=== PATIENT | male | born 2000 | race Caucasian/White ===

== ENCOUNTER 2020-06-03 08:45 | Emergency (ER) | payer OTHER, SELFPAY ==
--- NOTE | ~2020-06-03 | XR_ITS ---
EXAMINATION: XR chest 2V DATE: 06/03/2020 09:35 INDICATION: Chest pain and shortness of breath TECHNIQUE: PA and lateral views of the chest were obtained. COMPARISON: None FINDINGS: The lungs are clear with no focal airspace opacities, pulmonary edema, pleural effusion or pneumothor ax. The cardiomediastinal silhouette is normal. Visualized bones and soft tissues are unremarkable. IMPRESSION: 1. No acute cardiopulmonary disease. Reviewed, dictated and finalized at location A.
[2020-06-03 09:00] VITALS: BP 155/96; PULSE 98; RESP 20; TEMP 37.1; O2SAT 100
--- NOTE | 2020-06-03 09:00 | ECG_ITS ---
Measurements Intervals [place] Rate: 84 P: 14 TX: 142 QRS: -27 QRSD: 100 T: 30 QT: 376 QTc: 444 Interpretive Statements SINUS RHYTHM VOLTAGE CRITERIA FOR LVH DELAYED PRECORDIAL R/S TRANSITION BORDERLINE ECG Electronically Signed On 06-03-2020 9:54:38 CDT by Daryl Monroy D.O.
[2020-06-03 09:17] LABS: Basophils Percent Auto 0.5 % (0.2-1.2); Eosinophils Absolute Auto 0.2 K/mm3 (0-0.3); Eosinophils Percent Auto 1.7 % (0-4.4); Hematocrit 47.4 % (42.0-52.0); Hemoglobin 15.7 g/dL (14.0-18.0); Immature Granulocyte Absolute 0.02 K/mm3 (0.00-0.031); Immature Granulocyte Percent A 0.2 % (0-0.5); Lymphocytes Absolute Auto 3.19 K/mm3 (0.9-3.2); Lymphocytes Percent Auto 36.2 % (18.3-44.2); Mean Corpuscular HGB Conc 33.1 g/dl (32-36); Mean Corpuscular Hemoglobin 27.2 pg (26-34); Mean Corpuscular Volume 82.1 fl (80-100); Mean Platelet Volume 10.4 fl (7.4-10.4); Monocytes Absolute Auto 0.5 K/mm3 (0.1-0.6); Monocytes Percent Auto 6.1 % (2.6-8.5); Neutrophils Absolute Auto 4.9 K/mm3 (1.3-6.7); Neutrophils Percent Auto 55.3 % (45.5-73.1); Platelet Count Result 349 k/mm3 (150-375); Red Blood Count 5.77 M/mm3 (4.6-6.20); Red Cell Distribution Width 12.7 % (11.5-14.5); White Blood Count 8.8 K/mm3 (4.5-10.0)
[2020-06-03 09:29] LABS: Blood Urea Nitrogen 14 mg/dL (9-20); Calcium 9.8 mg/dL (8.4-10.2); Carbon Dioxide 30 mmol/L (22-30); Chloride 98 mmol/L (98-107); Estimated CRCL calculation 157 ml/min; Estimated Glomerular Filt Rate > 60; Glucose 89 mg/dL (75-110); Potassium 3.6 mmol/L (3.4-5.0); Sodium 136 mmol/L (137-145)
[2020-06-03] MEDS: ASPIRIN 81 MG CHEWABLE TABLET 324 MG PO (09:30)
[2020-06-03 09:31] LABS: Prothrombin Time 12.5 Seconds (11.1-14.7)
[2020-06-03 09:33] LABS: Partial Thromboplastin Time 31.4 SECONDS (22.3-36.8)
[2020-06-03 09:41] LABS: Troponin I < 0.012 ng/mL (0.000-0.034)
[2020-06-03] MEDS: KETOROLAC 30 MG/ML VIAL (*BKC) IV PUSH (09:50)
[2020-06-03 10:00] VITALS: BP 122/75; PULSE 82; RESP 16; O2SAT 98
--- NOTE | 2020-06-03 10:45 | ED.GENADULT ---
HPI - General Adult General Chief complaint: Chest Pain Stated complaint: short of breath, chest pain Time Seen by Provider: 06/03/20 09:01 History of Present Illness HPI narrative: Patient is a 19-year-old male who presents ER with chest pain and shoulder pain. Been ongoing for 3 days when he lays down to go to bed. Better when he is up moving around. No fever/chills/sweats/nausea/vomiting. Has not taken any pain medication for this. 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 Related Data Home Medications Medication Instructions Recorded Confirmed atorvastatin 06/03/20 levothyroxine 06/03/20 Allergies Allergy/AdvReac Type Severity Reaction Status Date / Time No Known Allergies Allergy Verified 06/03/20 09:12 Review of Systems Review of Systems: All systems reviewed & are unremarkable except as noted in HPI and below Constitutional: Constitutional: Denies chills, Denies fever(s) and Denies weakness ENT: Denies nasal congestion and Denies sore throat Cardiovascular: Cardiovascular: Reports chest pain, Denies rapid heart rate and Reports radiating jaw, neck or arm pain Respiratory: Respiratory: Denies cough, Denies dyspnea and Denies wheezing Gastrointestinal: Gastrointestinal: Denies abdominal pain, Denies diarrhea, Denies nausea and Denies vomiting PMFSH Past Medical History Medical History (Updated 06/03/20 @ 11:02 by Calin Pollard MD) Hyperlipidemia Hypothyroidism Surgical History Surgical History (Updated 06/03/20 @ 10:47 by Calin Pollard MD) No pertinent past surgical history Family History Family History (Updated 06/03/20 @ 10:47 by Calin Pollard MD) Mother Heart disease Social History Social History (Updated 06/03/20 @ 10:47 by Calin Pollard MD) Smoking status: Never smoker Exam Narrative: Exam Narrative: GENERAL: Well-appearing, morbidly obese, and in no acute distress. HEAD: Normocephalic, atraumatic. ENT: Mucous membranes moist. CHEST: Clear to auscultation. No respiratory distress. HEART: Regular rate and rhythm. Normal peripheral pulses. ABDOMEN: Soft, nontender, nondistended. EXTREMITIES: Normal range of motion. No edema. SKIN: Warm, dry, no rash. NEURO: Alert and oriented x3. PSYCH: Normal mood and affect. Course Course Emergency Course: Patient informed of results. Pain improved with Toradol. Discharge home. Vital Signs Vital signs: Vital Signs Temperature 98.7 F 06/03/20 09:00 Pulse Rate 98 06/03/20 09:00 Respiratory Rate 06/03/20 09:00 Blood Pressure 155/96 H 06/03/20 09:00 Pulse Oximetry 100 06/03/20 09:00 Temperature 98.7 F 06/03/20 09:00 Pulse Rate 98 06/03/20 09:00 Respiratory Rate 06/03/20 09:00 Blood Pressure 155/96 H 06/03/20 09:00 Pulse Oximetry 100 06/03/20 09:00 Medical Decision Making Vital Signs Vital Signs: Vital Signs Temperature 98.7 F 06/03/20 09:00 Pulse Rate 98 06/03/20 09:00 Respiratory Rate 06/03/20 09:00 Blood Pressure 155/96 H 06/03/20 09:00 Pulse Oximetry 100 06/03/20 09:00 Temperature 98.7 F 06/03/20 09:00 Pulse Rate 98 06/03/20 09:00 Respiratory Rate 06/03/20 09:00 Blood Pressure 155/96 H 06/03/20 09:00 Pulse Oximetry 100 06/03/20 09:00 Lab Data Result diagrams: 06/03/20 09:10 06/03/20 09:10 Labs: Lab Results 06/03/20 06/03/20 06/03/20 Range/Units 09:10 09:10 09:10 WBC 8.8 (4.5-10.0) K/mm3 RBC 5.77 (4.6-6.20) M/mm3 Hgb 15.7 (14.0-18.0) g/dL Hct 47.4 (42.0-52.0) % MCV 82.1 (80-100) fl MCH 27.2 (26-34) pg MCHC 33.1 (32-36) g/dl RDW 12.7 (11.5-14.5) % Plt Count 349 (150-375) k/mm3 MPV 10.4 (7.4-10.4) fl Immature Gran % (Auto) 0.2 (0-0.5) % Neut % (Auto) 55.3 (45.5-73.1) % Lymph % (Auto) 36.2 (18.3-44.2) % [place] % (Auto) 6.1 (2.6-8.5) % Eos % (Auto) 1.7 (0
[2020-06-03 11:10] VITALS: BP 134/77; PULSE 88; RESP 16; O2SAT 98
== END 2020-06-03 11:10 | disposition home or self-care (01) ==
PROVIDERS: Emergency Provider Emergency Medicine; PCP Family Medicine
DX: R07.9 Chest pain, unspecified (principal); E78.5 Hyperlipidemia, unspecified; E03.9 Hypothyroidism, unspecified
CPT/HCPCS: 36415; 71046; 80048; 84484; 85025; 85610; 85730; 93005; 96374; 99284; A9270; J1885

== ENCOUNTER 2021-04-25 07:48 | Outpatient (CLI) | payer OTHER, SELFPAY ==
--- NOTE | ~2021-04-25 | US_ITS ---
EXAMINATION: US abdomen limited DATE: 04/25/2021 08:24 INDICATION: Epigastric abdominal pain. TECHNIQUE: Multiple grayscale and Doppler ultrasound images of the abdomen were obtained. COMPARISON: None FINDINGS: The visualized portions of the head of the pancreas are normal. There is diffuse hepatic st eatosis. No liver surface nodularity. There is normal flow in main portal vein. The gallbladder is no rmal in size. No gallstones or gallbladder wall thickening. There was no sonographic Bland sign. The common duct is normal and measures 3 mm. IMPRESSION: 1. Diffuse hepatic steatosis. Reviewed, dictated and finalized at location A.
== END 2021-04-25 07:49 | disposition home or self-care (01) ==
PROVIDERS: PCP Physician Assistant; Visit Provider Physician Assistant
DX: R10.13 Epigastric pain (principal); R11.2 Nausea with vomiting, unspecified; K76.0 Fatty (change of) liver, not elsewhere classified
CPT/HCPCS: 76705

== ENCOUNTER 2022-06-23 00:10 | Day surgery (SDC) | payer OTHER, SELFPAY ==
[2022-06-05 15:18] VITALS: BMI 44.4
[2022-06-23 11:55] VITALS: BP 141/92; PULSE 88; RESP 20; TEMP 36.2; O2SAT 98; BMI 44.7
[2022-06-23] MEDS: LACTATED RINGERS 1,000 ML 150 ML IV CONT (12:20)
--- NOTE | 2022-06-23 12:50 | P.PNAN_ITS ---
Anes - Initial Pre Proc Eval Procedure: Operation Date: 06/23/22 14:00 Proposed Procedures p Esophagogastroduodenoscopy - Sukhjinder Tenorio MD Date/Time: 06/23/22 12:50 Surgeon: Sukhjinder Tenorio MD Pre Op Diagnosis: nausea, vomiting Patient Data Age: 21 Gender: M Height: 1.75 m Weight: 137.4 kg Last Vital Signs Temp 97.1 F L 06/23/22 11:55 Pulse 88 06/23/22 11:55 Resp 20 06/23/22 11:55 BP 141/92 H 06/23/22 11:55 Pulse Ox 98 06/23/22 11:55 O2 Del Method Room Air 06/23/22 11:55 Allergies Allergy/AdvReac Type Severity Reaction Status Date / Time No Known Allergies Allergy Verified 06/23/22 11:59 Home Medications Medication Instructions Recorded Confirmed Type fluoxetine 10 mg tablet 10 mg PO DAILY #90 tabs 07/29/21 06/23/22 Rx alprazolam 0.25 mg tablet 0.25 mg PO BID PRN anxiety or 11/04/21 06/23/22 Rx chest pain #40 tabs metoprolol tartrate 25 mg tablet 12.5 mg PO .HS #30 tabs 11/04/21 06/23/22 Rx pantoprazole 40 mg tablet,delayed 40 mg PO QHS #30 tabs 03/10/22 06/23/22 Rx release levothyroxine 100 mcg capsule 100 mcg PO DAILY #30 caps 05/27/22 06/23/22 Rx atorvastatin 20 mg tablet 20 mg PO DAILY #30 tabs 05/31/22 06/23/22 Rx Patient hx anesthesia problems: none Family hx anesthesia problems: none Results Review: All pre-operative results and documents have been reviewed as part of the pre- operative evaluation. [facility] Past Medical History Medical History Anxiety Essential hypertension Hyperlipidemia Hypothyroidism Nausea & vomiting Obese Surgical History Surgical History Hx of tonsillectomy No pertinent past surgical history Family History Family History Mother Heart disease Grandparent Acute myocardial infarction Cerebrovascular accident Social History Social History Smoking status: Never smoker Second hand tobacco smoke exposure: No Alcohol intake: current Alcohol use details: rare use Substance use: never Substance use type: does not use Living arrangements: with family Gender identity (if verbalized by the patient): Male Spiritual care concerns: No Anes - Eval Final PreProcedure Day of Procedure 06/23/22 12:50 Patient weight: morbidly obese Heart: regular rate and rhythm Lungs: clear to auscultation Airway: Mallampati scale class III Neurological: alert and oriented Last oral intake: >/= 8 hours ASA classification: III Emergent: no Anesthetic plan: proceed Anesthesia type and monitoring: general GIVS and standard monitoring Results Review: All pre-operative results and documents have been reviewed as part of the pre- operative evaluation. Informed Consent: The patient's anesthetic plan and its attendant risks and benefits were discuss ed with the patient/family/POA. Questions were solicited and answers provided to the satisfaction of the patient/family/POA.
--- NOTE | 2022-06-23 13:12 | PM.HPGS ---
History of Present Illness History of Present Illness Consent: Risks, benefits, and alternatives have been discussed and questions answered. Patient agrees to proceed with procedure. Chief complaint: nausea, vomiting Narrative: Hector Copeland is a 21 year old male with intermittent n/v and gerd, somehow better with pantoprazole, never had egd Review of Systems Constitutional: Constitutional: Denies headache(s) and Denies weakness Eyes: Eyes: Denies blurry vision ENT: Reports Normal hearing present, Denies headache(s) and Denies neck pain Cardiovascular: Cardiovascular: Denies chest pain and Denies dyspnea Respiratory: Respiratory: Denies dyspnea Gastrointestinal: Gastrointestinal: Reports no additional gastrointestinal complaints Genitourinary: Genitourinary: Denies dysuria Musculoskeletal: Musculoskeletal: Denies neck pain Integumentary/Breasts: Skin/Breast: Denies dry skin Neurologic: Reports Normal hearing present, Denies headache(s) and Denies weakness Psychiatric: Psychiatric: Denies anxiety Endocrine: Endocrine: Denies change in body appearance Hematologic/Lymphatic: Hematologic/Lymphatic: Denies easy bleeding Allergic/Immunologic: Allergic/Immunologic: Denies urticaria PMF Past Medical History Medical History (Updated 06/23/22 @ 13:13 by Sukhjinder Tenorio MD) Anxiety Essential hypertension GERD (gastroesophageal reflux disease) Hyperlipidemia Hypothyroidism Nausea & vomiting Obese Surgical History Surgical History Hx of tonsillectomy No pertinent past surgical history Family History Family History Mother Heart disease Grandparent Acute myocardial infarction Cerebrovascular accident Social History Social History Smoking status: Never smoker Second hand tobacco smoke exposure: No Alcohol intake: current Alcohol use details: rare use Substance use: never Substance use type: does not use Living arrangements: with family Gender identity (if verbalized by the patient): Male Spiritual care concerns: No Meds Home Medications and Allergies Home Medications Medication Instructions Recorded Confirmed Type fluoxetine 10 mg tablet 10 mg PO DAILY #90 tabs 07/29/21 06/23/22 Rx alprazolam 0.25 mg tablet 0.25 mg PO BID PRN anxiety or 11/04/21 06/23/22 Rx chest pain #40 tabs metoprolol tartrate 25 mg tablet 12.5 mg PO .HS #30 tabs 11/04/21 06/23/22 Rx pantoprazole 40 mg tablet,delayed 40 mg PO QHS #30 tabs 03/10/22 06/23/22 Rx release levothyroxine 100 mcg capsule 100 mcg PO DAILY #30 caps 05/27/22 06/23/22 Rx atorvastatin 20 mg tablet 20 mg PO DAILY #30 tabs 05/31/22 06/23/22 Rx Allergies Allergy/AdvReac Type Severity Reaction Status Date / Time No Known Allergies Allergy Verified 06/23/22 11:59 Vital Signs Vital Signs - 24 hr 06/23/22 11:55 Temperature 97.1 F L Pulse Rate 88 Respiratory Rate 20 Blood Pressure 141/92 H Pulse Oximetry 98 Oxygen Delivery Room Air Exam Const: General: comfortable and no acute distress HENMT: General nose exam: Normal nares present Eyes: General: appearance normal, both eyes and all related structures Neck: Neck: no JVD Resp: Auscultation: clear to auscultation bilaterally Cardio: Rate: regular rate Rhythm: regular rhythm GI: Inspection: non-distended GI Palp: Yes Soft to palpation Skin: General skin exam: normal color Neuro: General: gait normal Speech: normal speech Extrem: General: normal to inspection Psych: Mental Status: mental status grossly normal Assessment and Plan Assessment and plan (1) Nausea & vomiting: Code(s): R11.2 - Nausea with vomiting, unspecified Status: Acute (2) GERD (gastroesophageal reflux disease): Code(s): K21.9 - Gastro-esophageal reflux disease witho
[2022-06-23 13:31] VITALS: BP 126/76; PULSE 76; RESP 25; O2SAT 99
[2022-06-23 13:41] VITALS: BP 133/73; PULSE 71; RESP 15; O2SAT 99
[2022-06-23 13:51] VITALS: BP 112/72; PULSE 66; RESP 19; O2SAT 99
== END 2022-06-23 13:59 | disposition home or self-care (01) ==
PROVIDERS: PCP Family Medicine; Visit Provider Internal Medicine Gastroenterology
PROC: 0DJ08ZZ Inspection of Upper Intestinal Tract, Via Natural or Artificial Opening Endoscopic (ICD-10-PCS; CPT 43235; principal; 2022-06-23 14:00)
DX: R11.2 Nausea with vomiting, unspecified (principal); K21.9 Gastro-esophageal reflux disease without esophagitis; K29.50 Unspecified chronic gastritis without bleeding; F41.9 Anxiety disorder, unspecified; I10 Essential (primary) hypertension; E78.5 Hyperlipidemia, unspecified; E03.9 Hypothyroidism, unspecified; E66.01 Morbid (severe) obesity due to excess calories; Z68.41 Body mass index [BMI] 40.0-44.9, adult
CPT/HCPCS: 43239; 88305; J2704; J7120